=== PATIENT | male | born 1960 | race African-American/Black ===

== ENCOUNTER 2022-10-15 11:41 | Emergency (ER) | payer MEDICARE, OTHER ==
[~2022-10-15] VITALS: Ht 182.9 cm; Wt 91.0 kg
[2022-10-15 13:41] LABS: BASOPHILS % 0.9 % (0.0-2.0); EOSINOPHILS % 2.5 % (0.0-5.0); HEMATOCRIT. 44.2 % (42.0-52.0); LYMPHOCYTES % 13.1 % (20.0-50.0); MEAN CORPUSCULAR HEMOGLOBIN 31.4 pg (28.0-32.0); MEAN CORPUSCULAR VOLUME 92.7 fL (80.0-94.0); MEAN PLATELET VOLUME 6.9 fl (7.4-10.4); MONOCYTES % 8.2 % (2.0-8.0); NEUTROPHILS % 75.3 % (40.0-76.0); PLATELET 273 x1000/uL (130-400); RED BLOOD CELL COUNT 4.77 mill/uL (4.7-6.1); RED CELL DISTRIBUTION WIDTH 13.7 % (11.6-14.6)
[2022-10-15 13:46] LABS: CHLORIDE 110 mEq/L (98-107)
[2022-10-15] MEDS ORDERED: ASPIRIN 325MG EC TABLET PO ONE (14:00)
[2022-10-15 16:15] VITALS: BP 137/82
== END 2022-10-15 16:41 | disposition left against medical advice (07) ==
LOC: ER 14:20 → EDBEDREQ 15:11 → CANBEDREQ 16:19 → ER 16:41
DX: R07.89 Other chest pain (principal); F17.200 Nicotine dependence, unspecified, uncomplicated
CPT/HCPCS: 36415; 71045; 80053; 83880; 84484; 85025; 93005; 99285